=== PATIENT | female | born 1945 | race Asian ===

== ENCOUNTER 2021-10-05 11:10 | Inpatient (IN) | payer OTHER, SELFPAY ==
[~2021-10-05] VITALS: Ht 154.9 cm; Wt 78.0 kg
[2021-10-05 11:13] VITALS: BP 140/105
--- NOTE | 2021-10-05 11:19 | NUR ---
PT C/O CHEST PAIN X2 DAYS. SUBSTERNAL PAIN RADIATING TO SHOULDER. DENIES SOB. PLACED ON BEDSIDE MONITOR.
[2021-10-05] MEDS ORDERED: ASPIRIN 81 MG TAB.CHEW PO ONE (11:20)
[2021-10-05] MEDS ORDERED: KETOROLAC 30 MG/ML VIAL IVP ONE (11:35)
[2021-10-05] MEDS ORDERED: ONDANSETRON 4 MG/2 ML VIAL IVP ONE (11:35)
--- NOTE | 2021-10-05 11:50 | NUR ---
20 G IV ESTABLISHED TO L AC. BLOOD SAMPLES COLLECTED AND HANDED TO TOP DISTRIBUTION EXECUTIVE
[2021-10-05 12:12] LABS: BASOPHILS % (AUTO) 0.6 % (0.0-2.0); EOSINOPHILS # (AUTO) 0.1 K/uL (0-0.4); EOSINOPHILS % (AUTO) 1.6 % (0.0-4.0); HEMATOCRIT 39.8 % (36-48); HEMOGLOBIN 13.4 g/dL (12.0-16.0); LYMPHOCYTES # (AUTO) 1.7 K/uL (2.5-16.5); LYMPHOCYTES % (AUTO) 21.2 % (20.5-51.1); MEAN CORPUSCULAR HEMOGLOBIN 30 pg (27-31); MEAN CORPUSCULAR HGB CONC 34 g/dL (33-37); MEAN CORPUSCULAR VOLUME 89.3 fL (80-94); MONOCYTES # (AUTO) 0.5 K/uL (0.8-1.0); NEUTROPHILS # (AUTO) 5.5 K/uL (1.8-7.7); NEUTROPHILS % (AUTO) 69.6 % (42.2-75.2); PLATELET COUNT (AUTO) 270 K/uL (140-450); RED BLOOD CELL COUNT(AUTO) 4.45 MIL/uL (4.20-5.40); RED CELL DISTRIBUTION WIDTH 13.5 % (11.6-13.7); WHITE BLOOD COUNT (AUTO) 7.9 K/uL (4.8-10.8)
[2021-10-05 12:24] LABS: ALBUMIN 3.3 g/dL (3.4-5.0); ANION GAP 11.2 (8-16); ASPARTATE AMINOTRANSFERASE 22 U/L (15-37); CHLORIDE 107 mmol/L (98-107); CREATININE 0.7 mg/dL (0.6-1.3); GLUCOSE 119 mg/dL (74-106); POTASSIUM 3.2 mmol/L (3.5-5.1); SODIUM SERUM 144 mmol/L (136-145); TOTAL BILIRUBIN 0.2 mg/dL (0.0-1.0); UREA NITROGEN, BLOOD 26 mg/dL (7-18)
[2021-10-05] MEDS ORDERED: cefTRIAXone 1,000 MG VIAL ONE (13:09)
[2021-10-05] MEDS ORDERED: POTASSIUM CHLORIDE 10 MEQ TABER PO PRN (15:15)
[2021-10-05] MEDS ORDERED: NITROGLYCERIN 0.4 MG TAB SL PRN (15:15)
[2021-10-05] MEDS ORDERED: MAG SULF 2000 MG/WATER PREMIX 50 ML IV PRN (15:15)
[2021-10-05] MEDS ORDERED: ACETAMINOPHEN 325 MG TAB PO PRN (15:20)
[2021-10-05] MEDS ORDERED: LORazepam 2 MG/ML VIAL IM/IVP PRN (15:20)
[2021-10-05] MEDS ORDERED: HYDROcodone/APAP 5/325 MG 1 TAB TAB PO PRN (15:20)
[2021-10-05] MEDS ORDERED: MORPHINE SULFATE 2 MG/ML SYR IVP PRN (15:20)
[2021-10-05] MEDS ORDERED: ONDANSETRON 4 MG/2 ML VIAL IM/IVP PRN (15:20)
[2021-10-05] MEDS ORDERED: ZOLPIDEM 5 MG TAB PO PRN (15:20)
[2021-10-05] MEDS ORDERED: DOCUSATE SODIUM 100 MG GELCAP PO PRN (15:20)
--- NOTE | 2021-10-05 15:22 | NUR ---
RECEIVED REPORT FROM CLIVE KATZ. ASSUMED CARE AT THIS TIME.
--- NOTE | 2021-10-05 16:15 | NUR ---
PATIENT PROVIDED WITH WARM BLANKETS FOR COMFORT, ON BEDSIDE SURG PHYSICIAN ASST. ALL NEEDS MET AT THIS TIME. +
[2021-10-05 16:39] LABS: PROTHROMBIN TIME 9.9 secs (10.8-13.4)
[2021-10-05 16:53] LABS: CHOL/HDL RATIO 3.3 (1-4.5); THYROID STIMULATING HORMONE 1.12 uIU/mL (0.34-3.74)
[2021-10-05] MEDS ORDERED: PIPERACILLIN/TAZOBACTAM 2.25 GM in DEXTROSE 5% 50 ML IV SCH (18:00)
--- NOTE | 2021-10-05 18:30 | NUR ---
PATIENT DISCONNECTED FROM [facility] TO USE RESTROOM, AMBULATED WITH STEADY GAIT.
--- NOTE | 2021-10-05 19:00 | NUR ---
PATIENT PROVIDED WITH DINNER TRAY BEDSIDE
--- NOTE | 2021-10-05 19:17 | NUR ---
Pt report given to CLIVE MUHAMMAD. Transfer of care at this time.
--- NOTE | 2021-10-05 19:32 | NUR ---
received pt from day shift RN. pt currently a/o x 4, gcs 15. able to move extremities freely. pt currently eating dinner at bedside. NAD
[2021-10-05] MEDS ORDERED: PIPERACILLIN/TAZOBACTAM 3.375 GM in DEXTROSE 5% 50 ML IV SCH (21:00)
[2021-10-05] MEDS: METOPROLOL 25 MG TAB PO SCH (21:00)
[2021-10-05] MEDS ORDERED: ATORVASTATIN 20 MG TAB PO SCH (21:00)
--- NOTE | 2021-10-05 23:00 | NUR ---
pt NAD at this time. currently asleep in semi fowlers position.
--- NOTE | 2021-10-06 01:00 | NUR ---
denies any needs at this time. VSS.
--- NOTE | 2021-10-06 03:00 | NUR ---
laying in left lateral position. currently asleep. arousable via verbal stimuli.
--- NOTE | 2021-10-06 05:00 | NUR ---
NAD. pt is on right lateral position at this time currently asleep on semi fowlers position.
[2021-10-06 07:08] LABS: T4 (THYROXINE) 8.2 ug/dL (4.5-12.0)
--- NOTE | 2021-10-06 07:30 | NUR ---
RECEIVED PT IN [facility] AOX4. DENIES PAIN OR DISCOMFORT. NSR ON MONITOR. IV INTACT AND PATENT SL. NAD. SAFETY MAINTAINED.
--- NOTE | 2021-10-06 08:00 | NUR ---
ECHO AT BEDSIDE.
[2021-10-06 08:39] LABS: BASOPHILS % (AUTO) 0.6 % (0.0-2.0); EOSINOPHILS # (AUTO) 0.1 K/uL (0-0.4); EOSINOPHILS % (AUTO) 1.7 % (0.0-4.0); HEMATOCRIT 41.7 % (36-48); LYMPHOCYTES # (AUTO) 1.4 K/uL (2.5-16.5); LYMPHOCYTES % (AUTO) 20.7 % (20.5-51.1); MEAN CORPUSCULAR HEMOGLOBIN 30 pg (27-31); MEAN CORPUSCULAR HGB CONC 34 g/dL (33-37); MEAN CORPUSCULAR VOLUME 89.4 fL (80-94); MONOCYTES # (AUTO) 0.3 K/uL (0.8-1.0); PLATELET COUNT (AUTO) 293 K/uL (140-450); RED BLOOD CELL COUNT(AUTO) 4.66 MIL/uL (4.20-5.40); RED CELL DISTRIBUTION WIDTH 13.7 % (11.6-13.7)
[2021-10-06 09:00] LABS: MAGNESIUM 2.3 mg/dL (1.8-2.4); PHOSPHORUS 3.6 mg/dL (2.5-4.9)
[2021-10-06] MEDS ORDERED: lisinopriL 5 MG TAB PO SCH (09:00)
[2021-10-06] MEDS ORDERED: ASPIRIN 81 MG TAB.CHEW PO SCH (09:00)
[2021-10-06] MEDS: METOPROLOL 25 MG TAB PO SCH (09:35)
--- NOTE | 2021-10-06 10:46 | NUR ---
PT RESTING IN [place] NO CHANGES NOTED. SAFETY MAINTAINED.
[2021-10-06] MEDS ORDERED: ASPI81CT95 PO (12:31)
[2021-10-06] MEDS ORDERED: ATOR20TA40 PO (12:31)
[2021-10-06] MEDS ORDERED: LISI5TAB24 PO (12:31)
--- NOTE | 2021-10-06 13:13 | NUR ---
DR CASANOVA AT BEDSIDE.
--- NOTE | 2021-10-06 13:30 | NUR ---
per dr sommers pt can be dc home and cancel d dimer.
[2021-10-06 13:39] LABS: ANION GAP 15.9 (8-16); CARBON DIOXIDE 25.9 mmol/L (21-32); CHLORIDE 107 mmol/L (98-107); CREATININE 0.8 mg/dL (0.6-1.3); GLUCOSE 147 mg/dL (74-106); POTASSIUM 3.8 mmol/L (3.5-5.1); SODIUM SERUM 145 mmol/L (136-145); UREA NITROGEN, BLOOD 22 mg/dL (7-18)
[2021-10-06 16:45] VITALS: BP 127/70
--- NOTE | 2021-10-06 16:45 | NUR ---
pts daughter here for dc home. pt and daughter verbalize dc instructions. iv removed no active bleeding noted. no acute distress noted. stable on dc.
== END 2021-10-06 16:45 | disposition home or self-care (01) | DRG 291 ==
LOC: MED 11:10 → MMU 13:47
DX: I11.0 Hypertensive heart disease with heart failure (principal); I50.43 Acute on chronic combined systolic (congestive) and diastolic (congestive) heart failure; E44.1 Mild protein-calorie malnutrition; E86.0 Dehydration; Z20.822 Contact with and (suspected) exposure to COVID-19; E66.9 Obesity, unspecified; E87.6 Hypokalemia; Z68.32 Body mass index [BMI] 32.0-32.9, adult; R07.89 Other chest pain
CPT/HCPCS: 36415; 71045; 80048; 80053; 82150; 83036; 83690; 83735; 83880; 84100; 84134; 84436; 84443; 84484; 85025; 85379; 85610; 85730; 87040; 93005; 96365; 96375; 99285; J0696; J1644; J1885; J2405